=== PATIENT | male | born 1980 | race Caucasian/White ===

== ENCOUNTER 2016-10-15 11:16 | Emergency (ER) ==
[2016-10-15 12:20] VITALS: BP 136/84
--- NOTE | 2016-10-15 12:50 | PROVIDER DOCUMENTATION ---
HPI-General Adult - General Chief Complaint: Headache Stated Complaint: HEADACHE/ABD PAIN Time Seen by Provider: 10/15/16 12:07 Source: patient Allergies/Adverse Reactions: Patient Allergies Allergy/AdvReac Type Severity Reaction Status Date / Time No Known Allergies Allergy Verified 10/15/16 12:20 Home Medications: Lisinopril 20 mg PO DAILY 09/14/16 Pantoprazole [Protonix] 40 mg PO DAILY@0700 09/14/16 - History of Present Illness -Gen Adult Nature of Presenting Problems: Pt reports to er with multiple complaints. 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 Pt reports is taking protonix with no relief of the abd pain. pt reports left side chest pain reports been happening for a while now and has been checked for it with no relief. pt was seen 1 month ago at ER and refused Cardiac workup. Pt also reports having dysuria Location of Pain/Injury: reports: generalized Quality of Pain: reports: aching Severity: reports: severe Onset/Duration: reports: unsure Timing: reports: still present Similar Symptoms Previously?: Yes Recently seen or treated by another doctor?: Yes Review of Systems - Adult - REVIEW OF SYSTEMS - ADULT Constitutional: denies: chills, fever, fatique Eyes: reports: no symptoms reported Ears, Nose, Mouth & Throat: denies: ear pain, sinus problem, throat pain Cardiovascular: reports: chest pain. denies: irregular heart rate, orthopnea, syncope Respiratory: denies: cough, shortness of breath, wheezing Gastrointestinal: reports: abdominal pain. denies: diarrhea, nausea, vomiting Genitourinary: reports: dysuria. denies: discharge, frequency, hesitency Musculoskeletal: reports: no symptoms reported Integumentary: reports: no symptoms reported Neurological: reports: headache/migraines. denies: loss of balance, numbness, paresthesia Psychiatric: reports: no symptoms reported Endocrine: reports: no symptoms reported Hematologic/Lymphatic: reports: no symptoms reported Allergic/Immunologic: reports: no symptoms reported All Other Systems: Reviewed and Negative Past History - Adult - PAST MEDICAL HISTORY-ADULT Review of Records: reports: Nursing Assessment Review Major Childhood Illnesses: reports: denies history Cardiovascular: reports: HTN, hyperlipidemia Respiratory: reports: denies history Gastrointestinal: reports: GERD Genitourinary: denies: kidney disease, kidney stones Musculoskeletal: denies: chronic pain, fibromyalgia Neurological: denies: stroke deficits, headaches/migraines Endocrine/Immune: denies: Diabetes, thyroid disorder - PRIOR SURGERIES/PROCEDURES Surgical/Procedure History: reports: reviewed, not pertinent - IMMUNIZATION STATUS Childhood Immunizations: See Nurse Assessment Flu Vaccine: See Nurse Assessment - FAMILY HISTORY Family History: CAD under 55yo - SOCIAL HISTORY Smoking: denies Substance Use: none presently/history of abuse Alcohol Use Frequency: never Physical Exam-General - PHYSICAL EXAM-ADULT Initial Vital Signs Reviewed: Yes - CONSTITUTIONAL General Appearance: appears well, alert, no apparent distress, anxious - EYES Eyes: PERRL/EOMI, pink conjunctivae - HEAD, EARS, NOSE, MOUTH & THROAT HENMT: normocephalic/atraumatic, moist mucous membranes, normal ENT inspection - NECK Neck: non-tender, full range of motion, normal inspection - RESPIRATORY Respiratory: chest non-tender, lungs clear, normal breath sounds, no pleuratic chest pain, no respiratory distress, no accessory muscle use - CARDIOVASCULAR Cardiovascular: normal peripheral pulses, regular rate, rhythm, no edema - GASTROINTESTINAL (ABDOMEN) Abdominal Exam: normal bowel sounds, non tender, soft - LYMPHATIC Lymphatic: no adenopathy - MUSCULOSKELETAL Back Exam: normal inspection, no CVA tenderness, no vertebral tenderness Extremity: normal range of motion, non-tender, normal gait - SKIN Integumentary: normal color, normal turgor, warm/dry - 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, grossly normal, no motor/sensory deficits - PSYCHIATRIC Psych/Mental Status: normal thought content, normal thought process, oriented x 3, anxious Progress - PLAN OF CARE/RESULTS Progress/Plan/Lab Results: Orders Category Date Time Status CHEST-2 VIEWS [RAD] Stat Exams 10/15/16 12:45 Ordered CBC WITH DIFF [HEME] Stat Lab 10/15/16 12:44 Ordered CMP [COMPREHENSIVE METABOLIC PANEL] [CHEM] Stat Lab 10/15/16 12:44 Ordered Cardiac Profile [CK PROFILE] [SP CHEM] Stat Lab 10/15/16 12:45 Ordered TROPONIN T Stat Lab 10/15/16 12:45 Ordered EKG [EKG] Stat Ther 10/15/16 12:44 Ordered Vital Signs - 24 hr 10/15/16 12:15 Temperature 97.7 F Pulse Rate 90 Respiratory 18 Rate Blood Pressure 136/84 O2 Sat by Pulse 98 Oximetry Laboratory Tests 10/15/16 10/15/16 10/15/16 12:50 12:50 12:50 WBC 11.14 H RBC 5.41 Hgb 16.4 Hct 46.2 MCV 85.4 MCH 30.3 MCHC 35.5 RDW Std Deviation 13.3 Plt Count 258 MPV 9.3 Immature Gran % (Auto) 0.2 Neut % (Auto) 77.3 H Lymph % (Auto) 15.2 L [place] % (Auto) 6.6 Eos % (Auto) 0.4 Baso % (Auto) 0.3 Immature Gran # (Auto) 0.02 Neut # (Auto) 8.62 H Lymph # (Auto) 1.69 [place] # (Auto) 0.74 H Eos # (Auto) 0.04 Baso # (Auto) 0.03 Sodium 138 Potassium 3.8 Chloride 100 Carbon Dioxide 28 Anion Gap 10 BUN 11 Creatinine 1.0 Estimated GFR/1.73 m2 > 60 BUN/Creatinine Ratio 11 Glucose 124 H Calculated Osmolality 276 Calcium 9.5 Total Bilirubin 0.50 AST 19 ALT 19 Alkaline Phosphatase 69 Creatine Kinase 351 H Creatine Kinase Index 0.6 CK-MB (CK-2) 1.96 Troponin T Total Protein 7.2 Albumin 4.6 Globulin 3.0 Albumin/Globulin Ratio 2.0 Urine Source Urine Color Urine Clarity Urine pH Ur Specific [place] Urine Protein Urine Ketones Urine Blood Urine Nitrite Urine Bilirubin Urine Urobilinogen Urine Microscopic RBC Urine WBC Urine Microscopic WBC Ur Epithelial Cells Urine Glucose 10/15/16 10/15/16 12:50 13:11 WBC RBC Hgb Hct MCV MCH MCHC RDW Std Deviation Plt Count MPV Immature Gran % (Auto) Neut % (Auto) Lymph % (Auto) [place] % (Auto) Eos % (Auto) Baso % (Auto) Immature Gran # (Auto) Neut # (Auto) Lymph # (Auto) [place] # (Auto) Eos # (Auto) Baso # (Auto) Sodium Potassium Chloride Carbon Dioxide Anion Gap BUN Creatinine Estimated GFR/1.73 m2 BUN/Creatinine Ratio Glucose Calculated Osmolality Calcium Total Bilirubin AST ALT Alkaline Phosphatase Creatine Kinase Creatine Kinase Index CK-MB (CK-2) Troponin T < 0.010 Total Protein Albumin Globulin Albumin/Globulin Ratio Urine Source CLEAN CATCH Urine Color YELLOW Urine Clarity CLEAR Urine pH 7.0 Ur Specific [place] 1.015 Urine Protein TRACE A Urine Ketones NEGATIVE Urine Blood 1+ A Urine Nitrite NEGATIVE Urine Bilirubin NEGATIVE Urine Urobilinogen NORMAL Urine Microscopic RBC 10-20 A Urine WBC TRACE A Urine Microscopic WBC <10 Ur Epithelial Cells <10 Urine Glucose NEGATIVE - EKG 1 Time of EKG reading by physician:: 12:54 EKG Read and Signed by:: Karlie Valladares EKG Interpretation (*Must complete 3 of following elements*): Abnormal Rate: 80 Rhythm: nsr [place]: normal QRS: normal ST Wave: non-specific ST changes - XRAY 1 XRAY: Bilateral XRAY Study: Chest Impression: Normal XRAY Interpretation: NAD Departure - Departure Time of Disposition Order: 13:55 DIAGNOSIS: Hematuria, Myalgia Chest pain Qualifiers: Chest pain type: unspecified Qualified Code(s): R07.9 - Chest pain, unspecified Disposition: HOME 01 Certified Medical Emergency: Emergent Condition: Stable Additional Instructions: ED Follow Up Instructions: You have been treated by a care provider in the Emergency Department. These instructions are being provided to you so you can have an understanding of how to care for yourself upon discharge. Upon discharge from the Emergency Department, you are responsible for making arrangements for follow-up care by a physician of your choice. Take all prescribed medications as directed. Return to the Emergency Department immediately for any new or worsening symptoms. You may call the Physician Referral phone number at [phone] to obtain a list of Physicians who are taking new patients. Prescriptions: Sulfamethoxazole/Trimethoprim [Bactrim Ds Tablet] 1 each PO BID #20 tablet Referrals: Zaheer Love MD [Primary Care Provider] - Forms: Return to School/Parent Work Instructions: Sulfamethoxazole; Trimethoprim, SMX-TMP tablets, Hematuria, Adult Attestation - Scribe Verification/Attestation Scribe:: Rupa Nguyen Acting as Scribe for:: Melissa Dodd Scribe documention review:: This chart was documented by a scribe and accurately reflects the service the provider performed and the decisions made by the provider.
[2016-10-15 12:56] LABS: MANUAL DIFF NEEDED? NO
[2016-10-15 12:58] LABS: BASO% 0.3 % (0.0-0.8); EOS# 0.04 X1000 (0.0-0.7); EOS% 0.4 % (0.0-10.0); HEMATOCRIT 46.2 % (42.0-52.0); HEMOGLOBIN 16.4 g/dL (14.0-18.0); IMM GRAN# 0.02 X1000 (0.0-0.04); IMM GRAN% 0.2 % (0.0-0.5); LYMPH# 1.69 X1000 (1.2-3.4); LYMPH% 15.2 % (20.5-51.1); MCH 30.3 PG (27-31); MCHC 35.5 g/dL (33-37); MCV 85.4 FL (81-99); MONO# 0.74 X1000 (0.11-0.59); MONO% 6.6 % (1.7-9.3); MPV 9.3 FL (7.4-10.4); NEUT% 77.3 % (42.2-75.2); PLT 258 X1000 (130-400); RBC 5.41 XMIL (4.7-6.1)
--- NOTE | 2016-10-15 13:02 | EKG Report ---
Test Performed on : 10/15/2016 12:54:52 PM Test Reason : chest pain Blood Pressure : / mmHG Vent. Rate : 080 BPM Atrial Rate : 080 BPM P-R Int : 128 ms QRS Dur : 084 ms QT Int : 378 ms P-R-T Axes : 062 046 033 degrees QTc Int : 435 ms Normal sinus rhythm. Nonspecific T wave abnormality Abnormal ECG When compared with ECG of 14-SEP-2016 19:23, No significant change was found Unconfirmed Result
[2016-10-15 13:15] LABS: AGAP 10; ALBUMIN 4.6 g/dL (3.5-5.0); ALKALINE PHOSPHATASE 69 U/L (32-122); BUN 11 mg/dL (8-22); CALCIUM 9.5 mg/dL (8.8-10.2); CHLORIDE 100 mmol/L (98-107); COSMO 276; GOT 19 U/L (10-34); GPT 19 U/L (10-44); POTASSIUM 3.8 mmol/L (3.5-5.1); SODIUM 138 mmol/L (136-145); TCO2 28 mmol/L (25-35); TOTAL PROTEIN 7.2 g/dL (6.3-8.3)
[2016-10-15 13:20] LABS: URINE SOURCE CLEAN CATCH
[2016-10-15] MEDS ORDERED: TORADOL IM STA (13:28)
[2016-10-15 13:34] LABS: BILIRUBIN URINE NEGATIVE (NEGATIVE); BLOOD URINE 1+ (NEGATIVE); CLARITY CLEAR (CLEAR); COLOR YELLOW; GLUCOSE URINE NEGATIVE (NEGATIVE); LEUKOCYTES URINE TRACE (NEGATIVE); NITRITE URINE NEGATIVE (NEGATIVE); PROTEIN URINE TRACE mg/dL (NEGATIVE); SP GRAVITY URINE 1.015; URINE MICROSCOPIC NEEDED? YES; UROBILINOGEN URINE NORMAL
[2016-10-15 13:45] LABS: URINE EPITHELIAL CELLS <10 /HPF (<10); URINE WBC <10 /HPF (<10)
[2016-10-15 13:47] LABS: CK INDEX 0.6 (0.0-2.5); CK-MB 1.96 ng/mL (0.0-5.0)
--- NOTE | 2016-10-15 14:31 | Diag Imaging Result Document ---
PROCEDURE NAME: CHEST-2 VIEWS - 10/15/2016 CHEST X-RAY, 2 VIEWS: COMPARISON: 07/15/2016. FINDINGS: The lungs are normally expanded and clear. Heart size and mediastinal contours are normal. No pneumothorax or pleural effusion. IMPRESSION: Negative exam.
[2016-10-15] MEDS ORDERED: ROCEPHIN IM ONE (14:50)
[2016-10-15] MEDS ORDERED: XYLOCAINE-MPF 1% INJ ONE (14:50)
== END 2016-10-15 14:55 | disposition home or self-care (01) ==
LOC: P.ED 11:16
DX: R07.89 Other chest pain (principal); R31.9 Hematuria, unspecified; M79.1 Myalgia; R94.31 Abnormal electrocardiogram [ECG] [EKG]; R51 Headache; R10.84 Generalized abdominal pain; R30.0 Dysuria; I10 Essential (primary) hypertension; E78.5 Hyperlipidemia, unspecified; K21.9 Gastro-esophageal reflux disease without esophagitis; Z79.899 Other long term (current) drug therapy; Z82.49 Family history of ischemic heart disease and other diseases of the circulatory system
CPT/HCPCS: 36415; 71020; 80053; 81001; 82550; 82553; 84484; 85025; 93005; 96372; J0696; J1885

== ENCOUNTER 2016-10-19 12:07 | Emergency (ER) ==
[2016-10-19 12:26] VITALS: BP 128/74
[2016-10-19 13:09] LABS: URINE CULTURE PL NEEDED? NO; URINE SOURCE CLEAN CATCH
[2016-10-19 13:26] LABS: BILIRUBIN URINE NEGATIVE (NEGATIVE); BLOOD URINE 2+ (NEGATIVE); CLARITY CLEAR (CLEAR); COLOR YELLOW; GLUCOSE URINE NEGATIVE (NEGATIVE); LEUKOCYTES URINE TRACE (NEGATIVE); NITRITE URINE NEGATIVE (NEGATIVE); PH URINE 6.5; PROTEIN URINE 1+(30 mg/dL) mg/dL (NEGATIVE); SP GRAVITY URINE 1.015; URINE EPITHELIAL CELLS >10 /HPF (<10); URINE WBC <10 /HPF (<10); UROBILINOGEN URINE 4+(12 mg/dL)
--- NOTE | 2016-10-19 14:55 | Diag Imaging Result Document ---
PROCEDURE NAME: RENAL STONE SEARCH - 10/19/2016 CT RENAL STONE SEARCH WITHOUT CONTRAST: FINDINGS: A dose reduction protocol was used. Compared with the with contrast CT abdomen and pelvis of 03/26/2016. There is no evidence of hydronephrosis or perinephric edema. There is no renal stone identified. There is no evidence of bowel obstruction. The appendix is unremarkable. There is no free air. There are no calcified gallstones seen. There are nonspecific small retroperitoneal and mesenteric lymph nodes similar to the previous exam. IMPRESSION: 1. No evidence of renal stone or hydronephrosis. 2. Nonspecific small retroperitoneal and mesenteric lymph nodes.
--- NOTE | 2016-10-19 14:57 | PROVIDER DOCUMENTATION ---
HPI-General Adult - General Chief Complaint: Headache Stated Complaint: FLANK PAIN/ABD PAIN Time Seen by Provider: 10/19/16 13:31 Source: patient Allergies/Adverse Reactions: Patient Allergies Allergy/AdvReac Type Severity Reaction Status Date / Time No Known Allergies Allergy Verified 10/19/16 12:25 Home Medications: Lisinopril 20 mg PO DAILY 09/14/16 Pantoprazole [Protonix] 40 mg PO DAILY@0700 09/14/16 - History of Present Illness -Gen Adult Nature of Presenting Problems: This pt presents today c complaints of intermittent abdominal pains and CONNORS X 2 weeks. He was seen about these problems on and diagnosed c a UTI. He is currently on day 2 of antibiotics but states that he "doesn't feel much better." He reports hx of CONNORS and this feels similar to all previous episodes. Pt is also requesting a prescription for Ambien. Location of Pain/Injury: reports: head, abdomen Quality of Pain: reports: aching Severity: reports: mild Onset/Duration: reports: other (see hpi) Timing: reports: still present, intermittent Modifying Factors: improves with: nothing Similar Symptoms Previously?: Yes Recently seen or treated by another doctor?: Yes Review of Systems - Adult - REVIEW OF SYSTEMS - ADULT Constitutional: reports: no symptoms reported. denies: chills, fever Eyes: reports: no symptoms reported. denies: discharge, dry eyes Ears, Nose, Mouth & Throat: reports: no symptoms reported. denies: ear discharge, ear pain Cardiovascular: reports: no symptoms reported. denies: chest pain, edema Respiratory: reports: no symptoms reported. denies: chronic cough, cough Gastrointestinal: reports: abdominal pain. denies: diarrhea, nausea Genitourinary: reports: no symptoms reported. denies: dysuria, discharge Musculoskeletal: reports: no symptoms reported. denies: bone pain, back pain Integumentary: reports: no symptoms reported. denies: hives, hair loss Neurological: reports: headache/migraines. denies: ataxia, dizziness/vertigo Psychiatric: reports: no symptoms reported. denies: anxiety, anti-depressant use Endocrine: reports: no symptoms reported Hematologic/Lymphatic: reports: no symptoms reported Allergic/Immunologic: reports: no symptoms reported All Other Systems: Reviewed and Negative Past History - Adult - PAST MEDICAL HISTORY-ADULT Review of Records: reports: Old Records Reviewed, Nursing Assessment Review, Medications Reviewed, Social history reviewed & non-contributory. Major Childhood Illnesses: reports: denies history Cardiovascular: reports: HTN, hyperlipidemia Respiratory: reports: denies history Gastrointestinal: reports: GERD Obstetrical/Gynecological: reports: denies history Genitourinary: denies: kidney disease, kidney stones Musculoskeletal: denies: chronic pain, fibromyalgia Neurological: denies: stroke deficits, headaches/migraines Endocrine/Immune: denies: Diabetes, thyroid disorder Other Conditions: reports: denies history - PRIOR SURGERIES/PROCEDURES Surgical/Procedure History: reports: reviewed, not pertinent - IMMUNIZATION STATUS Childhood Immunizations: See Nurse Assessment Flu Vaccine: See Nurse Assessment - FAMILY HISTORY Family History: CAD under 55yo Physical Exam-General - PHYSICAL EXAM-ADULT Initial Vital Signs Reviewed: Yes - CONSTITUTIONAL General Appearance: appears well, alert, no apparent distress. negative: lethargic, slow to respond - EYES Eyes: PERRL/EOMI, pink conjunctivae - HEAD, EARS, NOSE, MOUTH & THROAT HENMT: normocephalic/atraumatic, moist mucous membranes, normal ENT inspection - NECK Neck: non-tender, full range of motion, normal inspection - RESPIRATORY Respiratory: chest non-tender, lungs clear, normal breath sounds, no pleuratic chest pain, no respiratory distress, no accessory muscle use. negative: respiratory distress, decreased breath sounds, accessory muscle use, crackles, rales, rhonchi - CARDIOVASCULAR Cardiovascular: normal peripheral pulses, regular rate, rhythm, no edema. negative: bradycardia, tachycardia - GASTROINTESTINAL (ABDOMEN) Abdominal Exam: normal bowel sounds, non tender, soft, no organomegaly, no pulsatile mass. negative: abdominal bruit, abnormal bowel sounds, distended, guarding, rigid, rebound, tenderness, McBurney's point tenderness, Mock's sign - LYMPHATIC Lymphatic: no adenopathy - MUSCULOSKELETAL Back Exam: normal inspection, no CVA tenderness, no vertebral tenderness. negative: CVA tenderness Extremity: normal range of motion, non-tender, normal gait - SKIN Integumentary: normal color, normal turgor, warm/dry - NEUROLOGIC Neurologic: grossly normal, no motor/sensory deficits. negative: facial droop, focal weakness, motor weakness, sensory deficit - PSYCHIATRIC Psych/Mental Status: normal mood/affect, normal thought content, normal thought process, oriented x 3 Progress - PLAN OF CARE/RESULTS Progress/Plan/Lab Results: Laboratory Tests 10/19/16 12:30 Urine Source CLEAN CATCH Urine Color YELLOW Urine Clarity CLEAR Urine pH 6.5 Ur Specific [place] 1.015 Urine Protein 1+(30 mg/dL) A Urine Ketones TRACE Urine Blood 2+ A Urine Nitrite NEGATIVE Urine Bilirubin NEGATIVE Urine Urobilinogen 4+(12 mg/dL) Urine Microscopic RBC 10-20 A Urine WBC TRACE A Urine Microscopic WBC <10 Ur Epithelial Cells >10 A Urine Glucose NEGATIVE Orders Category Date Time Status RENAL STONE SEARCH [CT] Stat Exams 10/19/16 13:50 Draft UA [URINALYSIS PL W/POSS RFLX CULT] [URINALYSIS] Stat Lab 10/19/16 12:30 Completed Vital Signs Temp Pulse Resp BP Pulse Ox 10/19/16 12:22 98.6 F 98 H 18 128/74 99 No Known Allergies Allergy (Verified 10/19/16 12:25) Lisinopril 20 mg PO DAILY 09/14/16 Pantoprazole [Protonix] 40 mg PO DAILY@0700 09/14/16 Sulfamethoxazole/Trimethoprim [Bactrim Ds Tablet] 1 each PO BID #20 tablet 10/15 Laboratory 10/19/16 12:30 Urine Source CLEAN CATCH Urine Color YELLOW Urine Clarity CLEAR Urine pH 6.5 Ur Specific [place] 1.015 Urine Protein 1+(30 mg/dL) A Urine Ketones TRACE Urine Blood 2+ A Urine Nitrite NEGATIVE Urine Bilirubin NEGATIVE Urine Urobilinogen 4+(12 mg/dL) Urine Microscopic RBC 10-20 A Urine WBC TRACE A Urine Microscopic WBC <10 Ur Epithelial Cells >10 A Urine Glucose NEGATIVE Will have pt f/u c urology. Will not fill ambien. - CT/MRI 1 CT Study: Renal Stone CT Results: nad Departure - Departure Time of Disposition Order: 14:56 DIAGNOSIS: Hematuria, Medication requested by patient but not prescribed or administered Disposition: HOME 01 Certified Medical Emergency: Urgent Condition: Good Additional Instructions: Follow up with a urologist. ED Follow Up Instructions: You have been treated by a care provider in the Emergency Department. These instructions are being provided to you so you can have an understanding of how to care for yourself upon discharge. Upon discharge from the Emergency Department, you are responsible for making arrangements for follow-up care by a physician of your choice. Take all prescribed medications as directed. Return to the Emergency Department immediately for any new or worsening symptoms. You may call the Physician Referral phone number at [phone] to obtain a list of Physicians who are taking new patients. Referrals: Zaheer Love MD [Primary Care Provider] - [place] Anaya MD [STAFF PHYSICIAN] - Attestation - Physician/ Mid-level Attestation Patient care was provided by Mid-level provider (PRIMARY EDUCATION PROFESSOR/PA):: Yes Mid-level provider:: Jorge Hooks Mid-level documentation review:: The Mid-level provider documentation, treatment plan and medical decision making was reviewed by the physician who agrees with all treatment and medical decision making by the MLP.
[2016-10-19] MEDS ORDERED: G.I. COCKTAIL PO ONE (15:03)
[2016-10-19] MEDS ORDERED: G.I. COCKTAIL ONE (15:03)
== END 2016-10-19 15:08 | disposition home or self-care (01) ==
LOC: P.ED 12:07
DX: R31.9 Hematuria, unspecified (principal); R51 Headache; R10.9 Unspecified abdominal pain; I10 Essential (primary) hypertension; E78.5 Hyperlipidemia, unspecified; K21.9 Gastro-esophageal reflux disease without esophagitis; Z79.899 Other long term (current) drug therapy; Z82.49 Family history of ischemic heart disease and other diseases of the circulatory system
CPT/HCPCS: 74176; 81001